=== PATIENT | female | born 1970 | race Caucasian/White ===

== ENCOUNTER 2017-04-09 19:16 | Emergency (ER) | payer OTHER ==
[~2017-04-09] VITALS: Ht 160 cm; Wt 62.1 kg
[~2017-04-09 19:16] MED LIST: ANAPROX DS550 M1 PO; BENTYL20 MG PO; CIPRO500 MG PO; CLONAZEPAM0.5 MG PO; FLAGYL500 MG PO; FLEXERIL10 MG PO; LIBRIUM25 MG PO; LORTAB 5-325 M1 EACH PO; MOBIC15 MG PO; MOTRIN800 MG PO; NAPROSYN500 MG PO; NO HOME MEDS; PERCOCET 5/31 TABLET PO; REGLAN10 MG PO; ULTRAM50 MG PO; VALIUM5 MG PO; VIBRAMYCIN100 MG PO; ZOFRAN ODT4 MG PO
[2017-04-09 20:17] LABS: HEMATOCRIT 41.8 % (36.0-46.0); HEMOGLOBIN 14.2 G/DL (11.9-15.5); MCV 91.3 FL (83-99); PLATELET COUNT 328 K/uL (156-360); RBC DIS.WIDTH-CV 13.8 % (11.8-14.6); RBC DIS.WIDTH-SD 46.3 % (39-53); RED BLOOD COUNT 4.58 M/uL (3.80-5.20); WHITE BLOOD COUNT 9.6 K/uL (4.1-10.2)
[2017-04-09 20:33] LABS: CHLORIDE 108 mEq/L (99-109); POTASSIUM 3.8 mEq/L (3.7-5.4); SODIUM 139 mEq/L (136-147)
[2017-04-09 20:34] LABS: GLUCOSE 87 mg/dL (70-99)
[2017-04-09 20:38] LABS: CREATININE 0.7 mg/dL (0.6-1.3); GFR ESTIMATE (CALCULATED) > 59 mL/min/
[2017-04-09 20:39] LABS: TROP-I INTERPRETATION NEGATIVE; TROPONIN-I < 0.01 ng/mL (0.0-0.30); UREA NITROGEN (BUN) 18 mg/dL (9-23)
[2017-04-09 23:05] LABS: TROP-I INTERPRETATION NEGATIVE; TROPONIN-I < 0.01 ng/mL (0.0-0.30)
[2017-04-09 23:42] VITALS: BP 132/84
== END 2017-04-09 23:46 | disposition home or self-care (01) ==
LOC: EME 19:16
DX: R07.9 Chest pain, unspecified (principal); F17.200 Nicotine dependence, unspecified, uncomplicated
CPT/HCPCS: 71046; 80048; 84484; 85027; 93005; 99281; 99284

== ENCOUNTER 2017-07-02 08:17 | Emergency (ER) | payer OTHER ==
[~2017-07-02] VITALS: Ht 160 cm; Wt 63.1 kg
[2017-07-02 09:39] LABS: APPEARANCE CLEAR ((CLEAR)); BILIRUBIN NEGATIVE; BLOOD MODERATE; COLOR YELLOW ((YELLOW)); GLUCOSE (STRIP) NEGATIVE; KETONES NEGATIVE; LEUKOCYTES NEGATIVE; NITRITE NEGATIVE; PROTEIN (STRIP) NEGATIVE; SPECIFIC GRAVITY 1.021 (1.000-1.030); UROBILINOGEN 0.2 MG/DL (0.2-1.0)
[2017-07-02 09:46] LABS: BACTERIA NONE SEEN /HPF; EPITHELIAL CELLS RARE /HPF; HYALINE CASTS 0-5 /LPF; MUCUS NONE SEEN /LPF; UCUL ADDED? NO; WHITE BLOOD CELLS 0-5 /HPF (0-5)
[2017-07-02 09:47] LABS: HEMATOCRIT 42.5 % (36.0-46.0); HEMOGLOBIN 14.2 G/DL (11.9-15.5); MCH 30.7 PG (29.0-34.0); MCHC 33.4 G/DL (30.0-36.0); MCV 91.8 FL (83-99); PLATELET COUNT 350 K/uL (156-360); RBC DIS.WIDTH-CV 13.9 % (11.8-14.6); RBC DIS.WIDTH-SD 46.9 % (39-53); RED BLOOD COUNT 4.63 M/uL (3.80-5.20); WHITE BLOOD COUNT 12.8 K/uL (4.1-10.2)
[2017-07-02 09:55] LABS: ALBUMIN 3.7 g/dL (3.2-4.8)
[2017-07-02 09:56] LABS: CHLORIDE 110 mEq/L (99-109); POTASSIUM 4.4 mEq/L (3.7-5.4); SODIUM 141 mEq/L (136-147)
[2017-07-02 09:58] LABS: GLUCOSE 116 mg/dL (70-99)
[2017-07-02 10:00] LABS: TOTAL BILIRUBIN 0.2 mg/dL (0.0-1.0)
[2017-07-02 10:01] LABS: ALKALINE PHOSPHATASE 80 IU/L (3-129)
[2017-07-02 10:02] LABS: CREATININE 0.8 mg/dL (0.6-1.3); GFR ESTIMATE (CALCULATED) > 59 mL/min/
[2017-07-02 10:03] LABS: AST (GOT) 20 IU/L (2-34); UREA NITROGEN (BUN) 14 mg/dL (9-23)
[2017-07-02 10:05] LABS: ALT (GPT) 25 IU/L (3-49)
[2017-07-02 10:16] LABS: QUANTITATIVE HCG < 4.0 MIU/ML
[2017-07-02] MEDS ORDERED: PERCOCET 5/31 TABLET PO (13:37)
[2017-07-02] MEDS ORDERED: FLAGYL500 MG PO (13:37)
[2017-07-02] MEDS ORDERED: CIPRO500 MG PO (13:37)
[2017-07-02 14:06] VITALS: BP 114/75
== END 2017-07-02 14:10 | disposition home or self-care (01) ==
LOC: EME 08:17
DX: K57.32 Diverticulitis of large intestine without perforation or abscess without bleeding (principal); K92.1 Melena; F17.200 Nicotine dependence, unspecified, uncomplicated; Z98.51 Tubal ligation status
CPT/HCPCS: 74177; 80053; 81003; 84702; 85027; 93005; 99281; 99285; J2405; J7030; J7050